=== PATIENT | male | born 1955 | race Caucasian/White ===

== ENCOUNTER → 2018-02-09 | Outpatient (CLI) | payer OTHER | END | disposition home or self-care (01) | LOC: CFH 12:39 | PROVIDERS: ATTEND Internal Medicine Cardiovascular Disease | DX: I08.3 Combined rheumatic disorders of mitral, aortic and tricuspid valves (principal); Q25.0 Patent ductus arteriosus; I10 Essential (primary) hypertension | CPT/HCPCS: 93306 ==

== ENCOUNTER 2018-11-19 08:28 | Outpatient (CLI) | payer OTHER | END 2018-11-19 23:59 | disposition home or self-care (01) | LOC: CFH 08:28 | PROVIDERS: ATTEND Internal Medicine Cardiovascular Disease | DX: Z02.9 Encounter for administrative examinations, unspecified (principal) ==

== ENCOUNTER → 2018-11-24 | Outpatient (CLI) | payer OTHER ==
[~2018-11-24] MED LIST: REGADENOSON 0.4 MG/5 ML SYRINGE ONE
== END | disposition home or self-care (01) ==
LOC: CFH 12:25
PROVIDERS: ATTEND Internal Medicine Cardiovascular Disease
DX: Q24.9 Congenital malformation of heart, unspecified (principal)
CPT/HCPCS: 78452; 93017; A9502; J2785

== ENCOUNTER → 2019-01-18 | Outpatient (CLI) | payer OTHER ==
[~2019-01-18] MED LIST changes: +CARV12.52 PO; +DOXA2TAB9 PO; +LOSA50TA14 PO; -REGADENOSON 0.4 MG/5 ML SYRINGE ONE
[2019-01-18 15:35] LABS: BASOPHILS # (AUTO) 0.03 x10^3/uL (0-0.1); BASOPHILS % (AUTO) 1 % (0-1); EOSINOPHILS # (AUTO) 0.18 x10^3/uL (0-0.4); EOSINOPHILS % (AUTO) 3 % (1-7); LYMPHOCYTES % (AUTO) 28 % (22-44); MD NO; MEAN CORPUSCULAR HEMOGLOBIN 31.2 pg (27.5-34.5); MEAN CORPUSCULAR HGB CONC 33.2 g/dL (33.2-36.2); MEAN CORPUSCULAR VOLUME 93.9 fL (81-97); MEAN PLATELET VOLUME 6.5 fL (7.4-10.4); MONOCYTES % (AUTO) 8 % (2-9); NEUTROPHILS # (AUTO) 3.89 x10^3/uL (1.8-6.8); NEUTROPHILS % (AUTO) 61 % (42-75); PLATELET COUNT 189 x10^3/uL (130-400); RED BLOOD COUNT 4.54 x10^6/uL (4.38-5.82); RED CELL DISTRIBUTION WIDTH 13.3 % (9.4-14.8)
[2019-01-18 15:38] LABS: ALANINE AMINOTRANSFERASE 32 U/L (12-78); ALBUMIN 4.1 g/dL (3.4-5.0); ANION GAP 7 mmol/L (5-15); CALCIUM 9.2 mg/dL (8.5-10.1); CHLORIDE 106 mmol/L (98-107); CREATININE 1.06 mg/dL (0.7-1.3)
[2019-01-18 15:40] LABS: ALKALINE PHOSPHATASE 114 U/L (45-117); BILIRUBIN,TOTAL 0.6 mg/dL (0.2-1.0); TOTAL PROTEIN 7.8 g/dL (6.4-8.2)
== END | disposition home or self-care (01) ==
LOC: STAR 14:24
PROVIDERS: ATTEND Orthopaedic Surgery
DX: Z01.818 Encounter for other preprocedural examination (principal); M17.12 Unilateral primary osteoarthritis, left knee
CPT/HCPCS: 36415; 80053; 85025; 87081

== ENCOUNTER 2019-02-02 05:31 | Observation (INO) | payer OTHER ==
[~2019-02-02] VITALS: Ht 180.3 cm; Wt 96.4 kg
[2019-02-02] MEDS ORDERED: LACTATED RINGERS 1,000 ML IV SCH (06:03)
[2019-02-02] MEDS ORDERED: KETOROLAC 60 MG/2 ML ONE (06:14)
[2019-02-02] MEDS ORDERED: TRANEXAMIC ACID 100 MG/ML, 10ML ONE (06:14)
[2019-02-02] MEDS ORDERED: ROPIvacaine/PF 0.2%, 20 ML ONE (06:15)
[2019-02-02] MEDS ORDERED: SODIUM CHLORIDE 0.9% 50 ML ONE (06:15)
[2019-02-02] MEDS ORDERED: EPINEPHRINE 1 MG/ML, 1ML ONE (06:15)
[2019-02-02] MEDS ORDERED: VANCOMYCIN 1,000 MG ONE (06:15)
[2019-02-02 06:30] VITALS: BP 133/77
[2019-02-02] MEDS ORDERED: TAMSULOSIN 0.4 MG CAP.ER.24H ONE (06:52)
[2019-02-02] MEDS ORDERED: FENTANYL PF 100 MCG/2ML ONE (06:54)
[2019-02-02] MEDS ORDERED: MIDAZOLAM 1 MG/ML, 2ML ONE (06:54)
[2019-02-02] MEDS ORDERED: PROPOFOL 50 ML ONE ×2 (06:56→08:06)
[2019-02-02] MEDS ORDERED: OxyconTIN ER 10 MG TAB.ER PO ONE (07:00)
[2019-02-02] MEDS ORDERED: ACETAMINOPHEN 500 MG TABLET PO ONE (07:00)
[2019-02-02] MEDS ORDERED: GABAPENTIN 300 MG CAPSULE PO ONE (07:00)
[2019-02-02] MEDS ORDERED: DEXAMETHASONE 4 MG/ML, 1ML ONE (07:05)
[2019-02-02] MEDS ORDERED: ONDANSETRON 2MG/ML, 2ML ONE (07:05)
[2019-02-02] MEDS ORDERED: CEFAZOLIN 1,000 MG ONE (07:05)
[2019-02-02] MEDS ORDERED: MIDAZOLAM 1 MG/ML, 2ML IV PRN (08:00)
[2019-02-02] MEDS ORDERED: ROPIvacaine/PF 0.2%, 100ML 550 ML (check volume) INJ ONE (08:00)
[2019-02-02] MEDS ORDERED: HYDROmorphone 2 MG/ML, 1ML IVPush PRN ×2 (08:00→09:00)
[2019-02-02] MEDS ORDERED: ONDANSETRON 2MG/ML, 2ML IV PRN ×2 (08:00→09:00)
[2019-02-02] MEDS ORDERED: FENTANYL PF 100 MCG/2ML IV PRN (08:00)
[2019-02-02] MEDS ORDERED: METOPROLOL 1 MG/ML, 5ML IV PRN (08:00)
[2019-02-02] MEDS ORDERED: OXYcodone 5 MG/5 ML ORAL.SOL UDC PO PRN (08:00)
[2019-02-02] MEDS ORDERED: PROMETHAZINE 25 MG/ML, 1ML IV PRN (08:00)
[2019-02-02] MEDS ORDERED: hydrALAzine 20 MG/ML, 1ML IV PRN (08:00)
[2019-02-02] MEDS ORDERED: MEPERIDINE/PF 25MG/0.5ML IVPush PRN (08:00)
[2019-02-02] MEDS: D5%-0.45% NACL 1,000 ML IV SCH ×2 (08:47→15:50)
[2019-02-02] MEDS: ACETAMINOPHEN 500 MG TABLET PO SCH ×2 (09:00→15:49)
[2019-02-02] MEDS ORDERED: LOSARTAN 50MG TABLET PO SCH (09:00)
[2019-02-02] MEDS ORDERED: SENNA/DOCUSATE TABLET PO PRN (09:00)
[2019-02-02] MEDS ORDERED: SCOPOLAMINE PATCH, 1.5MG PATCH.TD72 TD SCH (09:00)
[2019-02-02] MEDS ORDERED: CARVEDILOL 12.5 MG TABLET PO SCH (09:00)
[2019-02-02] MEDS ORDERED: PSYLLIUM PACKET PO PRN (09:00)
[2019-02-02] MEDS ORDERED: ZOLPIDEM 5MG TABLET PO PRN (09:00)
[2019-02-02] MEDS ORDERED: ALUMINUM/MAG/SIMETHICONE 30 ML UDC PO PRN (09:00)
[2019-02-02] MEDS ORDERED: ASCORBIC ACID 500 MG TABLET PO SCH (09:00)
[2019-02-02] MEDS ORDERED: PROMETHAZINE 25 MG/ML, 1ML IM PRN (09:00)
[2019-02-02] MEDS ORDERED: DOXAZOSIN 2MG TABLET PO SCH (09:00)
[2019-02-02] MEDS ORDERED: DIAZEPAM 5 MG TABLET PO PRN (09:00)
[2019-02-02] MEDS ORDERED: PROMETHAZINE 12.5 MG SUPP PR PRN (09:00)
[2019-02-02] MEDS ORDERED: OXYcodone IR 5MG TABLET PO PRN (09:00)
[2019-02-02] MEDS ORDERED: MULTIVITAMINS/MINERALS TABLET PO SCH (09:00)
[2019-02-02] MEDS: FERROUS SULFATE 325 MG TABLET PO SCH ×2 (09:00→18:20)
[2019-02-02] MEDS ORDERED: POLYETHYLENE GLYCOL 17 GM PACKET PO PRN (09:00)
[2019-02-02] MEDS ORDERED: MAGNESIUM HYDROXIDE 8%, 30ML UDC PO PRN (09:00)
[2019-02-02] MEDS ORDERED: DOCUSATE 100 MG CAPSULE PO SCH (09:00)
[2019-02-02] MEDS ORDERED: ONDANSETRON 4 MG TABLET PO PRN (09:00)
[2019-02-02] MEDS: KETOROLAC 30 MG/1 ML IV SCH ×2 (09:00→15:48)
[2019-02-02] MEDS ORDERED: BISACODYL 10 MG SUPP PR PRN (09:00)
[2019-02-02] MEDS ORDERED: DIPHENHYDRAMINE 25 MG CAPSULE PO PRN (09:00)
[2019-02-02] MEDS ORDERED: TRANEXAMIC ACID 1,000 MG in SODIUM CHLORIDE 0.9% 100 ML IVPB ONE (09:15)
[2019-02-02 10:00] VITALS: BP 121/72
[2019-02-02] MEDS: CALCIUM/VITAMIN D3 250-125 TABLET PO SCH ×2 (12:00→15:48)
[2019-02-02 14:45] VITALS: BP 137/81
[2019-02-02] MEDS ORDERED: CEFAZOLIN PMX 2GM/50ML 50 ML IVPB SCH (15:00)
[2019-02-02] MEDS ORDERED: OXYC5CAP2 PO (16:49)
[2019-02-02] MEDS ORDERED: TRAM50TA2 PO (16:51)
[2019-02-02] MEDS ORDERED: ASPIRIN 81 MG TABLET EC PO SCH (18:00)
[2019-02-02 18:30] VITALS: BP 120/82
[2019-02-03] MEDS ORDERED: DEXAMETHASONE 4 MG/ML, 1ML IVPush SCH (06:00)
== END 2019-02-02 18:30 | disposition home or self-care (01) ==
LOC: OUT 05:31 → ORIP 08:47 → 4NOR 09:55
PROVIDERS: ADMIT Orthopaedic Surgery; ATTEND Orthopaedic Surgery
DX: M17.12 Unilateral primary osteoarthritis, left knee (principal); M17.11 Unilateral primary osteoarthritis, right knee; M47.896 Other spondylosis, lumbar region; I10 Essential (primary) hypertension; Z79.82 Long term (current) use of aspirin; Z79.899 Other long term (current) drug therapy
CPT/HCPCS: 27447; 73560; 96365; 96375; 97110; 97161; C1713; C1776; G0378; J0171; J0690; J1100; J1885; J2250; J2405; J2704; J2795; J3010; J7120; J3370

== ENCOUNTER → 2020-11-13 | Outpatient (CLI) | payer OTHER ==
[~2020-11-13] MED LIST changes: +OXYC5CAP2 PO; +TRAM50TA2 PO
== END | disposition home or self-care (01) ==
LOC: CFH 11:22
PROVIDERS: ATTEND Internal Medicine Cardiovascular Disease
DX: I08.8 Other rheumatic multiple valve diseases (principal); I11.9 Hypertensive heart disease without heart failure; Q24.9 Congenital malformation of heart, unspecified
CPT/HCPCS: 93306